=== PATIENT | male | born 1955 ===

== ENCOUNTER → 2021-04-04 | Outpatient (CLI) | payer MEDICARE ==
[2021-04-04 13:13] LABS: HCT 43.2 % (39.0-53.0); HGB 14.4 gm/dL (13.0-17.5); MCH 29.6 pg (25.0-35.0); MCHC 33.4 g/dL (31.0-37.0); MCV 88.8 fL (80.0-100.0); Platelet Count 200 k/uL (150-450); RBC 4.87 m/uL (4.30-5.90); RDW 13.4 % (11.5-15.5); WBC 9.7 k/uL (3.8-10.6)
[2021-04-04 13:21] LABS: Appearance,Urine Clear (Clear); Bilirubin,Urine Negative (Negative); Blood,Urine Negative (Negative); Color,Urine Yellow; Glucose,Urine (UA) Negative (Negative); Ketones,Urine Negative (Negative); Leukocyte Esterase,Urine Negative (Negative); Nitrite,Urine Negative (Negative); PH, Urine 5.5 (5.0-8.0); Protein,Urine Trace (Negative); Specific Gravity,Urine 1.031 (1.001-1.035)
[2021-04-04 13:28] LABS: Partial Thromboplastin Time 22.8 sec (22.0-30.0); Prothrombin Time 10.4 sec (9.0-12.0)
[2021-04-04 13:37] LABS: ALT 31 U/L (4-49); AST 26 U/L (17-59); African American GFR (CKD) >90 (>60 ml/min/1.73 sqM); Albumin 3.9 g/dL (3.5-5.0); Alkaline Phosphatase 88 U/L (38-126); Anion Gap 7 mmol/L; Blood Urea Nitrogen 14 mg/dL (9-20); Calcium 9.2 mg/dL (8.4-10.2); Carbon Dioxide 27 mmol/L (22-30); Chloride 106 mmol/L (98-107); Glucose 94 mg/dL (74-99); Non-African American GFR(CKD) >90 (>60 ml/min/1.73 sqM); Potassium 4.1 mmol/L (3.5-5.1); Sodium 140 mmol/L (137-145); Total Bilirubin 0.5 mg/dL (0.2-1.3); Total Protein 6.9 g/dL (6.3-8.2)
== END | disposition home or self-care (01) ==
LOC: LABPAT 11:32
PROVIDERS: ATTEND Orthopaedic Surgery
DX: Z01.818 Encounter for other preprocedural examination (principal); M16.11 Unilateral primary osteoarthritis, right hip; I49.3 Ventricular premature depolarization; R94.31 Abnormal electrocardiogram [ECG] [EKG]
CPT/HCPCS: 80053; 81003; 85027; 85610; 85730; 87070; 93005

== ENCOUNTER 2021-04-08 07:54 | Day surgery (SDC) | payer MEDICARE ==
[2021-04-04 10:21] VITALS: BMI 47.8
[~2021-04-08 07:54] MED LIST: ACETAMINOPHEN TAB 500 MG TAB PO PRN; GABAPENTIN 300 MG CAP PO PRN; MELOXICAM 7.5 MG TAB PO PRN; ROPIVACAINE/EPI/CLONIDINE/KET 50 ML SYRINGE MISCELLANE PRN; TRANEXAMIC ACID 1,000 MG in SODIUM CHLORIDE 0.9% 100 ML IVPB PRN; ceFAZolin 3 GM in SODIUM CHLORIDE 0.9% 100 ML IVPB PRN
[2021-04-08] MEDS ORDERED: ONDANSETRON 4 MG/2 ML VIAL ONE (08:34)
[2021-04-08] MEDS ORDERED: DEXAMETHASONE SOD PHOSPHATE 4 MG/ML 1 ML VIAL IV ONE ×2 (08:36→09:03)
[2021-04-08] MEDS ORDERED: LIDOCAINE 1% (10MG/ML) FOR IV START INTRADERMA ONE (08:36)
[2021-04-08] MEDS ORDERED: LACTATED RINGERS 1,000 ML IV ONE ×2 (08:36→10:03)
[2021-04-08] MEDS ORDERED: ROCURONIUM 10 MG/ML (5 ML VIAL) IV ONE (08:54)
[2021-04-08] MEDS ORDERED: NEOSTIGMINE 1 MG/ML 10 ML VIAL ONE (08:54)
[2021-04-08] MEDS ORDERED: PROPOFOL 10 MG/ML 20 ML VIAL IV ONE (08:54)
[2021-04-08] MEDS ORDERED: MIDAZOLAM 2 MG/2 ML VIAL ONE (08:54)
[2021-04-08] MEDS ORDERED: GLYCOPYRROLATE 0.2 MG/ML 2 ML VIAL ONE (08:54)
[2021-04-08] MEDS ORDERED: LIDOCAINE 1% INJ 10MG/ML (20 ML MDV) ONE (08:54)
[2021-04-08] MEDS ORDERED: SODIUM CHLORIDE 0.9% 100 ML BAG ONE (08:54)
[2021-04-08] MEDS ORDERED: SUCCINYLCHOLINE CHLORIDE VIAL 200 MG/10 ML VIAL IV ONE (08:54)
[2021-04-08] MEDS ORDERED: TRANEXAMIC ACID 1,000 MG/10 ML VIAL ONE (08:54)
[2021-04-08] MEDS ORDERED: ePHEDrine 50 MG/ML 1 ML AMP ONE (08:54)
[2021-04-08] MEDS ORDERED: SODIUM CHLORIDE 0.9% IRRIG 1,000 ML BTL IRRIGATION ONE (08:54)
[2021-04-08] MEDS ORDERED: fentaNYL (PF) 50 MCG/ML 2 ML AMP ONE (08:54)
[2021-04-08] MEDS ORDERED: HEPARIN SODIUM,PORCINE 10,000 UNIT/ML 1 ML VIAL ONE (08:54)
[2021-04-08] MEDS ORDERED: ceFAZolin 1,000 MG in SODIUM CHLORIDE 0.9% 1,000 ML IRRIGATION ONE (08:57)
[2021-04-08] MEDS ORDERED: ONDANSETRON 4 MG/2 ML VIAL IVP ONE (09:03)
[2021-04-08] MEDS ORDERED: MIDAZOLAM 2 MG/2 ML VIAL IV PRN (09:03)
[2021-04-08] MEDS ORDERED: LACTATED RINGERS 1,000 ML IV SCH (09:03)
[2021-04-08] MEDS ORDERED: LIDOCAINE 1% (10MG/ML) FOR IV START INTRADERMA PRN (09:03)
--- NOTE | 2021-04-08 10:20 | P.OP ---
Date of Procedure: 04/08/21 Preoperative Diagnosis: Severe osteoarthritis right hip Postoperative Diagnosis: Severe osteoarthritis right hip Procedure(s) Performed: Right total hip arthroplasty with a direct anterior approach Implants: [employer] Polarstem standard size 3 [employer] R3, 3 hole hemispherical acetabular shell, 54 mm [employer] Reflection 6.5 mm cancellus screw, 20 mm 2 [employer] R3, XLPE 20 acetabular liner [employer] Oxinium femoral head 36 m, +0 All components were press-fit. The articulation is Oxinium on polyethylene. Anesthesia: GETA Surgeon: Rafael Luz Delivery Driver/Supervisor #1: Fallon Calvillo Estimated Blood Loss (ml): 315 (165 mL returned with Cell Saver) Pathology: other (Femoral head) Condition: stable Disposition: PACU Indications for Procedure: After failure of conservative treatment we discussed the surgical and nonsurgical treatment options at length. Patient wishes to proceed with a total hip arthroplasty with a direct anterior approach. Complications specific to this procedure were discussed at length, including but not limited to infection, leg length discrepancy, dislocation, nerve injury, and fracture. Covid-19 was also discussed at length with the patient, and they are aware of the current policies and procedures. The patient was given the option of delaying surgery, but they elect to proceed knowing these risks. Patient is aware of all these complications and informed consent was obtained Operative Findings: The operative findings are consistent with severe osteoarthritis of the right hip Description of Procedure: Patient was seen and evaluated in the preoperative area and the consent was reviewed. The operative site was marked with a skin marker. The patient was then brought to the operating room and given preoperative antibiotics intravenously. 1 g of Tranexamic acid was also given intravenously. A general anesthetic was administered by the anesthesia department. The patient was then placed on the Rochelle table with the bony prominences well-padded. The hip area was then prepped with a ChloraPrep solution and draped in the usual sterile fashion. A universal timeout was then performed, which confirmed the patient's name, surgical site, ALLERGIES, and procedure being performed on the consent. Next the incision site was located at 1 cm distal and 2 cm lateral to the anterior superior iliac spine. The skin and subcutaneous tissues were sharply incised. Incision was carefully dissected down to the fascia overlying the tensor fascia milagros muscle. This fascia was then incised in line with the incision. Care was taken to stay laterally in order to avoid injuring the lateral femoral cutaneous nerve. Next, using blunt finger dissection, the tensor fascia milagros muscle was dissected off its investing fascia. The muscle was then carefully retracted laterally with a cobra retractor over the lateral neck of the femur. Next, the circumflex vessels were identified and cauterized using the AquaMantis device. The anterior hip capsule was then exposed. The capsule was then opened and an inverted T fashion. Cobra retractors were then placed intracapsularly. The retractors were maintained intracapsular throughout the procedure. The proximal femur was then visualized. Fluoroscopic x-rays were then taken in order to evaluate the preoperative leg lengths. A small amount of traction was placed on the leg. The femoral neck was then osteotomized appropriate level above the lesser trochanter. A small wedge of bone was then removed from the remaining femoral head. Next, using a corkscrew the femoral head was removed from the acetabulum. On gross visual inspection, the femoral head had complete loss of articular cartilage and multiple periarticular osteophytes. The femoral head was then measured. Attention was then turned to the acetabulum. The acetabulum was exposed and any remaining labrum was excised. Sequential reaming of the acetabulum was performed using fluoroscopic guidance until there was a good bed of bleeding cancellus bone. When the appropriate size was reached, a trial was then placed. The position and fit of the trial was checked with fluoroscopy. The trial was then removed. Then, using fluoroscopic guidance, the final implant was impacted at 20 of anteversion and 40 of abduction, and fully seated in the acetabulum. 2 screws were then placed in the acetabulum. Again fluoroscopy was used to check position of the screws. Next, the liner was then impacted, with a 20 elevated liner located in the anterior superior quadrant. Component locking was confirmed. Attention was then directed to the femur. With the aid of the Rochelle table, the femur was externally rotated to approximately 130, extended, and adducted under the opposite leg. A side hook was then placed under the proximal femur, and the side hook elevator was used to elevate the proximal femur while releasing the capsule. Retractors were then placed. A capsular release was performed, as well as a release of the conjoined tendon, which afforded excellent visualization of the proximal femur. Next, a box osteotome was used to lateralize the proximal femur. A hat block bench hand was then used to locate the femoral canal. Sequential broaching was then performed with appropriate size which afforded excellent fixation in the proximal femur. A trial was then placed with appropriate head and neck, and the hip was gently reduced with the aid of the Rochelle table. Fluoroscopy was then used to check position of the components, as well as to ensure equal leg lengths. The hip was then gently dislocated and the trials were then removed. Final implants were then impacted and the hip was again reduced. Final fluoroscopic x-rays confirmed that the components were in anatomic position, as well as equal leg lengths. The hip was also taken through range of motion, and found to be stable. The hip was then copiously irrigated with antibiotic solution with pulsatile lavage. The hip was then irrigated with Irrisept solution. The soft tissues were then injected with a ropivacaine solution, which consisted of 246.25 mg of ropivacaine, 0.5 mg of epinephrine, 30 mg of Toradol, 80 g of clonidine, and 48.45 mL of sterile water, for a total of 100 mL of fluid injected. A second dose of 1 g of Tranexamic acid was also given intravenously. Any blood collected by Cell Saver was then returned to the patient at this time. The fascia was then closed with 2-0 strata fix suture. The subcutaneous tissue was closed with 3-0 Vicryl. The subcuticular tissue was closed with 3-0 strata fix suture. The skin was then closed with Exofin skin glue. After the glue and dried, and Optifoam silver impregnated dressing was applied. The patient was then transferred to the recovery room in stable condition. The campus administrative assistant ABIODUN Lo was required due to the complexity of surgery, and the need for skilled director medical surgical for positioning, draping, exposure, retraction, and closure of the wound.
--- NOTE | 2021-04-08 10:27 | XR ---
EXAMINATION TYPE: XR Hip Limited RT, FL guidance operating room DATE OF EXAM: 04/08/2021 CLINICAL HISTORY: Right hip pain and osteoarthritis. TECHNIQUE: Fluoroscopy. Limited intraoperative views right hip COMPARISON: None. FINDINGS: Fluoroscopic guidance was provided during right hip replacement procedure performed by Dr. Luz. A total of 39 seconds of fluoroscopic time was utilized during the procedure and 5 spot i ntraoperative images are acquired. Images acquired show partial bone resection and placement of metal lic hip prosthesis. Satisfactory position is noted on intraoperative images obtained. IMPRESSION: As Above.
[2021-04-08] MEDS ORDERED: HYDROmorphone 0.2 MG/1 ML SYRINGE IVP PRN (10:40)
[2021-04-08] MEDS ORDERED: HYDROmorphone 0.5 MG/0.5 ML SYRINGE IVP PRN ×2 (10:40)
[2021-04-08] MEDS ORDERED: hydrOXYzine pamoate 25 MG CAP PO PRN (10:40)
[2021-04-08] MEDS ORDERED: NALOXONE 0.4 MG/ML 1 ML VIAL IV PRN (10:40)
[2021-04-08] MEDS ORDERED: ONDANSETRON 4 MG/2 ML VIAL IVP PRN (10:40)
[2021-04-08] MEDS ORDERED: MAGNESIUM HYDROXIDE 2,400 MG/10 ML CUP PO PRN (10:40)
[2021-04-08] MEDS ORDERED: HYDROcodone/APAP 7.5-325MG 1 EACH TAB PO PRN ×2 (10:42)
[2021-04-08] MEDS ORDERED: SODIUM CHLORIDE 0.9% 1,000 ML IV SCH (10:45)
[2021-04-08] MEDS: HYDROmorphone 0.5 MG/0.5 ML SYRINGE IVP PRN ×3 (10:55→11:55)
--- NOTE | 2021-04-08 11:05 | XR ---
EXAMINATION TYPE: XR Hip Limited RT DATE OF EXAM: 04/08/2021 CLINICAL HISTORY: Right hip pain and osteoarthritis. TECHNIQUE: Single AP portable view of right hip is obtained immediately postoperatively. COMPARISON: None. FINDINGS: Metallic hardware from right hip arthroplasty is seen and appears satisfactory in alignment and position. There is evidence of recent surgery with subcutaneous gas noted laterally. IMPRESSION: Metallic hardware from right hip arthroplasty is satisfactory in position.
[2021-04-08 13:45] VITALS: RESP 20; TEMP 97.8
[2021-04-08] MEDS ORDERED: ceFAZolin 3 GM in SODIUM CHLORIDE 0.9% 100 ML IVPB SCH (16:00)
--- NOTE | 2021-04-08 16:12 | P.DS ---
Providers Expected date of discharge: 04/08/21 Attending physician: Rafael Luz Consults: 04/08/21 10:40 Consult Physician Routine Consulting Provider: Cassandra Resendiz Consult Reason/Comments: medical management Do you want consulting provider notified?: Yes Primary care physician: Rafael Valadez PAC - Discharge Diagnosis(es) (1) Osteoarthritis of right hip Current Visit: Yes Status: Acute (2) S/P total right hip arthroplasty Current Visit: Yes Status: Acute Hospital Course: This is a 65-year-old male with known history of degenerative arthritis of the right hip. The patient presented for evaluation as an outpatient. After discussion and consideration patient elects to proceed with total hip arthroplasty. The patient is seen preoperatively by Dr. Luz and medically cleared for surgery by their primary care physician. Patient is admitted to [facility] on 04/07/2021 for total hip arthroplasty. The procedure is performed without complication or sequelae. The patient is doing well postoperatively. Labs and vital signs are stable on day of discharge. On day of discharge patient's hip incision is healing well. There is minimal erythema. There is no drainage noted at this time. There is minimal soft tissue swelling to the hip and thigh. Patient has full foot and ankle motion without difficulty or pain. Calf is soft and nontender to palpation. Neurovascular status to the right lower extremity is intact. Patient is discharged home in good condition. Opioid start talking form is reviewed and signed. Please see med rec for accurate list of home medications. Plan - Discharge Summary Discharge Rx Participant: No New Discharge Prescriptions: New Aspirin 325 mg PO BID #60 tab Ondansetron Odt [Zofran Odt] 1 tab PO Q8HR PRN #10 tab PRN Reason: Nausea HYDROcodone/APAP 7.5-325MG [[place] 7.5-325] 1 - 2 tab PO Q6H PRN #32 tab PRN Reason: Pain Sennosides [Senokot] 2 tab PO DAILY PRN #60 tablet PRN Reason: Constipation No Action Ibuprofen [Motrin] 800 mg PO Q8H PRN PRN Reason: Pain Ferrous Sulfate [Feosol] 325 mg PO DAILY Acetaminophen [Tylenol] 650 mg PO Q4H PRN PRN Reason: Pain Discharge Medication List Acetaminophen [Tylenol] 650 mg PO Q4H PRN 04/04/21 [History] Ferrous Sulfate [Feosol] 325 mg PO DAILY 04/04/21 [History] Ibuprofen [Motrin] 800 mg PO Q8H PRN 04/04/21 [History] Aspirin 325 mg PO BID #60 tab 04/08/21 [Rx] HYDROcodone/APAP 7.5-325MG [[place] 7.5-325] 1 - 2 tab PO Q6H PRN #32 tab 04/08/21 [Rx] Ondansetron Odt [Zofran Odt] 1 tab PO Q8HR PRN #10 tab 04/08/21 [Rx] Sennosides [Senokot] 2 tab PO DAILY PRN #60 tablet 04/08/21 [Rx] Follow up Appointment(s)/Referral(s): [facility], [NON-STAFF] - ([facility] will call you to schedule your home physical therapy visits. ) Rafael Luz DO [Doctor of Osteopathic Medicine] - 2 Weeks Activity/Diet/Wound Care/Special Instructions: Weightbearing as tolerated with walker. Leave dressing intact. Dressing may be removed by home care nurse or by patient in 7 days. Then change dressing twice daily until follow up. May shower with initial dressing intact and after removal. If dressing become saturated, please remove. Please take aspirin 325mg twice daily for 30 days to prevent blood clots. Recommend use of compression stockings daily until follow up to help prevent swelling and blood clots. May remove at night before sleeping. Please follow-up with [facility] in 2 weeks and call with any questions or concerns, . Discharge Disposition: HOME WITH HOME HEALTH SERVICES
[2021-04-08 17:20] VITALS: BP 159/88; PULSE 81
[2021-04-08] MEDS ORDERED: SENNOSIDES-DOCUSATE SODIUM 1 EACH TAB PO SCH (21:00)
[2021-04-08] MEDS ORDERED: ASPIRIN 325 MG TAB PO SCH (21:00)
--- NOTE | 2021-04-08 22:27 | CONS ---
CONSULTATION DATE OF SERVICE: 04/08/2021 REASON FOR CONSULTATION: Advice regarding hypertension and other medical issues requested by Orthopedic [facility]. HISTORY OF PRESENT ILLNESS: This 65-year-old gentleman with a past medical history of hypertension, DJD, appendectomy, joint replacement, being followed by primary physician in the outpatient setting was admitted after right total hip arthroplasty by an anterior approach. There is no history of fever, rigors or chills. No history of headache, loss of consciousness, seizures and the patient also had normal pulse ox which I confirmed with the staff nurse, Olinda. There is no history of fever, rigors or chills. The patient is actually being discharged tonite if everything is okay and the patient is keen on going home, also. The patient is taking blood pressure medication previously. PAST MEDICAL HISTORY: Hypertension, DJD, history of appendectomy, the orthopedic surgery. MEDICATIONS: Prior to admission: Ibuprofen, iron sulfate, Tylenol, Senokot, Zofran, [place], doses reviewed. ALLERGIES: CODEINE. FAMILY HISTORY: History of cancer in the family. SOCIAL HISTORY: No history of smoking. Occasional alcohol. REVIEW OF SYSTEMS: ENT: No diminished vision. No diminished hearing. CARDIOVASCULAR: No angina or palpitations. RESPIRATIONS: No cough or hemoptysis. GI no nausea or vomiting. no dysuria. NERVOUS SYSTEM: No numbness or weakness. ALLERGY/IMMUNOLOGY: No asthma or hayfever. MUSCULOSKELETAL: As mentioned earlier. HEMATOLOGY/ONCOLOGY: No history of anemia. ENDOCRINE: No history of diabetes or hypothyroidism. CONSTITUTIONAL: As mentioned earlier. DERMATOLOGY negative. RHEUMATOLOGY Negative. PSYCHIATRIC: As mentioned earlier. PHYSICAL EXAMINATION: Patient is alert, oriented times three. Pulse is 81 blood pressure 115/82, respirations 20, temperature normal. Pulse ox 97% on room air. HEENT: Conjunctivae are normal. NECK: No JVD. CARDIOVASCULAR: S1, S2 muffled. RESPIRATION: Breath sounds diminished in the bases. No rhonchi. No crackles. ABDOMEN: Soft. Nontender. LEGS: Status post surgery. NERVOUS SYSTEM: Higher functions as mentioned earlier. Moves all 4 limbs. No focal motor or sensory deficits. LYMPHATICS: No lymph nodes palpable in the neck, axillae or groin. SKIN: No ulcer, rash or bleeding. JOINTS: No active deforming arthropathy. LAB STUDIES: Covid nineteen is negative. The preop labs are: CBC, coags, and chemistry within normal limits. ASSESSMENT: 1. Status post right total hip joint arthroplasty. 2. Hypertension. 3. Degenerative joint disease. 4. History of appendectomy. 5. History of tonsillectomy. 6. Obesity with body mass of 48.2. 7. FULL CODE. RECOMMENDATIONS AND DISCUSSION: This 65-year-old gentleman who presented with multiple complex medical issues, at this time I recommend continue the current medications and DVT prophylaxis. Incentive spirometry. I would also recommend the patient follow up with primary physician for continued monitoring of the blood pressure and further initiation of blood pressure medication. Apparently the patient has taken blood pressure medications for many years previously. Otherwise, the rest of recommendations per Orthopedic Surgery. As mentioned earlier, Orthopedic Surgery is planning the patient to be discharged today. Incentive spirometry also recommend. Thank you for letting us participate in the care of this patient. MMODL / IJN: [id number] /
[2021-04-09] MEDS ORDERED: MELOXICAM 7.5 MG TAB PO SCH (09:00)
== END 2021-04-08 17:45 | disposition home health service (06) ==
LOC: OR 07:54 → 4SSUR 12:48 → OR 17:45
PROVIDERS: ATTEND Orthopaedic Surgery
DX: M16.11 Unilateral primary osteoarthritis, right hip (principal); I10 Essential (primary) hypertension; E66.01 Morbid (severe) obesity due to excess calories; Z68.42 Body mass index [BMI] 45.0-49.9, adult; Z96.641 Presence of right artificial hip joint; Z98.890 Other specified postprocedural states; Z90.49 Acquired absence of other specified parts of digestive tract; Z79.1 Long term (current) use of non-steroidal anti-inflammatories (NSAID); Z79.899 Other long term (current) drug therapy; Z88.6 Allergy status to analgesic agent; Z88.5 Allergy status to narcotic agent
CPT/HCPCS: 97116; 97161; 86891; 86900; 86901; 86850; 88300; 87635; 73501; 27130; P9022; C1776; J2250; J0330; J1644; J1100; J2710; J0690 ×2; J2405; J2001; J3010; J2704; J1170